=== PATIENT | male | born 2000 | race Caucasian/White ===

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

== ENCOUNTER 2021-12-06 12:20 | Emergency (ER) | payer MEDICARE, MEDICAID, SELFPAY ==
[2021-12-06 12:25] VITALS: BP 119/54; PULSE 126; RESP 16; TEMP 37.9; O2SAT 94; BMI 33.3
--- NOTE | 2021-12-06 12:46 | ED_ITS ---
HPI - COVID General: Chief Complaint: COVID symptoms Stated Complaint: Sore throat, Covid Exposure Time Seen by Provider: 12/06/21 12:40 Triage information: No fever, cough or shortness of breath . Exposure to COVID + person last 14 days History of Present Illness: 21-year-old male presents due to cough fever and congestion. Does have a history of asthma but denies any chest pain or shortness of breath. States father tested positive for COVID recently and he would like a test. COVID Results: Nasal/Oral Coronavirus 2019 PCR Not detected 08/14/20 12:39 SARS-CoV-2 (PCR) Pending 12/06/21 13:07 Coronavirus Type 229E (PCR) Pending 12/06/21 13:07 Review of Systems Narrative: - CONSTITUTIONAL: Denies weight loss, fever and chills. - HEENT: As above - RESPIRATORY: As above - CV: Denies palpitations and CP. - GI: Denies abdominal pain, nausea, vomiting and diarrhea. - : Denies dysuria and urinary frequency. - MSK: Denies myalgia and joint pain. - SKIN: Denies rash and pruritus. - NEUROLOGICAL: Denies headache, weakness, numbness and syncope. - PSYCHIATRIC: Denies suicidal ideation PFS ED PFSH: Medical History ADHD (attention deficit hyperactivity disorder) Autism History of attention deficit hyperactivity disorder (ADHD) History of autism Family History (Updated 09/25/20 @ 10:28 by Kirsten Leo LPN) Family/Other CAD (coronary artery disease) Grandmother CAD (coronary artery disease) Hypertension Stroke Father Hyperlipidemia Mother Lupus Denies family history of Rheumatoid arthritis Diabetes Cancer Social History (Updated 01/15/21 @ 10:02 by Kirsten Leo LPN) Smoking and tobacco status: never smoked Second hand smoke exposure: No Alcohol intake: never History of recent travel: No Physical Exam Narrative: EXAM NARRATIVE: - GENERAL: Alert and oriented x 3. No acute distress. Well-nourished. - EYES: EOMI. Anicteric. - HENT: Atraumatic, no C-spine tenderness. Moist mucous membranes. No scleral icterus. No cervical lymphadenopathy. - LUNGS: Clear to auscultation bilaterally. No accessory muscle use. Equal lung sounds bilaterally. No respiratory distress. - CARDIOVASCULAR: Tachycardic, regular rhythm. No murmur. No JVD. - ABDOMEN: Soft, non-tender and non-distended. Negative CVA tenderness bilaterally, no rebound or guarding, negative Haddad sign. No palpable masses. - EXTREMITIES: No edema. Non-tender. - SKIN: No rashes or lesions. Warm. - NEUROLOGIC: No meningismus or focal neurological deficits. CN II-XII grossly intact. - PSYCHIATRIC: Cooperative. Appropriate mood and affect. Course Vital Signs: Vital signs: Vital Signs Temperature 98.8 F 12/06/21 15:46 Pulse Rate 102 H 12/06/21 15:46 Respiratory Rate 18 12/06/21 15:46 Blood Pressure 104/50 12/06/21 15:46 Pulse Oximetry 95 12/06/21 15:46 Oxygen Delivery Me thod 12/06/21 13:53 MDM - COVID Medical Decision Making 21-year-old presents after URI symptoms. Saturating well on room air. He is febrile and tachycardic but improved after Tylenol. Denies chest pain or shortness of breath. Strep and influenza swabs are negative. States he does not want to wait for the results of the COVID swab and will call back to obtain results. At this time I believe patient would be safe for discharge and outpatient follow-up. Return precautions provided. Plan was reviewed with the patient who expressed understanding. Questions answered. Patient will follow up with PCP. Patient discharged in stable condition. Lab Data Laboratory Results Influenza Type A Ag Negative (Negative) 12/06/21 13:07 Influenza Type B Ag Negative (Negative) 12/06/21 13:07 Group A Strep Rapid Negative (Negative) 12/06/21 13:07 Nasal/Oral Coronavirus 2019 PCR Not detected 08/14/20 12:39 SARS-CoV-2 (PCR) Pending 12/06/21 13:07 Coronavirus Type 229E (PCR) Pending 12/06/21 13:07 Discharge Plan Discharge Patient Disposition: Home Clinical Impression: Upper respiratory infection Condition: Stable Prescriptions: New benzonatate 200 mg capsule 200 mg PO TID PRN (Reason: cough) 3 Days Qty: 9 0RF No Action Flovent Diskus 100 mcg/actuation blister with device 2 inh INHALATION ONCE fluticasone propionate [Children's Flonase Allergy Rlf] 50 mcg/actuation spray,suspension 1 spray INTRANASAL ONCE albuterol sulfate 90 mcg/actuation aerosol powdr breath activated 2 inh INHALATION Q4H PRN (Reason: asthma) montelukast [Singulair] 10 mg tablet 10 mg PO DAILY Zyrtec 10 mg capsule 10 mg PO DAILY sertraline 100 mg tablet 100 mg PO DAILY hydroxyzine HCl 25 mg tablet 25 mg PO BID PRN (Reason: Anxiety) levocetirizine [Allergy Relief (levocetirizin)] 5 mg tablet 5 mg PO DAILY Complete Multivitamin Tablet 1 tab PO DAILY Discharge Orders: Discharge ED (Routine); Ordered 12/06/21 Ordered By: Guicho Hendricks Referrals: Shanika Dixon FNP [Primary Care Provider] - 1-3 days Patient Instructions: Upper Respiratory Infection (ED), Opioid Safety Coding Level of Care Code ED [employer] Architect for Lucille Petty
--- NOTE | 2021-12-06 12:59 | PC.NURSE ---
pts mother reports pt lives with parents. father tested positive for covid. Pt reports sore throat, sinuses, fever, and swollen under his chin. Denies shortness of breath, pain, or cough. lung sounds clear bilat. no abnormalities visualized in throat. speech clear, speaking in complete sentences without difficulty
[2021-12-06] MEDS: acetaminophen 325 mg Tablet 650 MG PO (13:04)
[2021-12-06 14:50] LABS: Influenza A by IFA Negative (Negative); Influenza B by IFA Negative (Negative)
[2021-12-06 14:51] LABS: Rapid Strep A Test Negative (Negative)
[2021-12-06 15:46] VITALS: BP 104/50; PULSE 102; RESP 18; TEMP 37.1; O2SAT 95
[2021-12-06 16:00] LABS: Adenovirus Not Detected (NOT DETECT); Chlamydia Pneumoniae Not Detected (NOT DETECT); Coronavirus 229E,HKU1,NL63,OC4 Not Detected (NOT DETECT); Human Metapneumovirus Not Detected (NOT DETECT); Human Rhinovirus/Enterovirus Not Detected (NOT DETECT); Influenza A Not Detected (NOT DETECT); Influenza A H1 Not Detected (NOT DETECT); Influenza A H1-2009 Not Detected (NOT DETECT); Influenza A H3 Not Detected (NOT DETECT); Influenza B Not Detected (NOT DETECT); Mycoplasma Pneumoniae Not Detected (NOT DETECT); Parainfluenza Virus Type 1 Not Detected (NOT DETECT); Parainfluenza Virus Type 2 Not Detected (NOT DETECT); Parainfluenza Virus Type 3 Not Detected (NOT DETECT); Parainfluenza Virus Type 4 Not Detected (NOT DETECT); Respiratory Syncytial Virus A Not Detected (NOT DETECT); Respiratory Syncytial Virus B Not Detected (NOT DETECT); SARS-COV-2 Detected (NOT DETECT)
--- NOTE | 2021-12-06 16:28 | PC.NURSE ---
called lab to check status of covid swab results, per lab, results excepted in another 1.5 hours.
--- NOTE | 2021-12-06 18:31 | PC.NURSE ---
notified of positive covid result
== END 2021-12-06 17:13 | disposition home or self-care (01) ==
PROVIDERS: Emergency Provider Emergency Medicine; PCP Nurse Practitioner Family
DX: U07.1 COVID-19 (principal); F84.0 Autistic disorder
CPT/HCPCS: 87081; 87635; 87804; 87880; 99283

== ENCOUNTER → 2024-09-27 09:46 | Outpatient (BNVA) | payer OTHER, MEDICAID, SELFPAY | PROVIDERS: PCP Nurse Practitioner Family; Visit Provider Physician Assistant | DX: M25.562 Pain in left knee (principal); M23.307 Other meniscus derangements, unspecified meniscus, left knee | CPT/HCPCS: 73560; 73565; 99203 ==

== ENCOUNTER → 2024-11-21 11:15 | Outpatient (BNVA) | payer OTHER, MEDICAID, SELFPAY | PROVIDERS: PCP Nurse Practitioner Family; Visit Provider Student in an Organized Health Care Education/Training Program | DX: M25.562 Pain in left knee (principal); M23.304 Other meniscus derangements, unspecified medial meniscus, left knee | CPT/HCPCS: 99213 ==

== ENCOUNTER 2024-11-30 06:55 | Outpatient (CLI) | payer OTHER, MEDICAID, SELFPAY ==
--- NOTE | 2024-11-30 07:15 | MR_ITS ---
WS: [id number] MRI LEFT KNEE NONCONTRAST TECHNIQUE: Axial PD, coronal PD fat sat, coronal PD, sagittal PD, and sagittal PD fat-sat images obtained. CLINICAL INFORMATION: left knee pain COMPARISON: None. FINDINGS: Distal quadriceps and patella tendons are intact. Hypertrophic patella with patella soy. ACL appears intact with increased intrasubstance T1 and T2 signal abnormality suspicious for mucoid degeneration. Correlation for prior ACL tear. Normal PCL. Medial and lateral meniscus are normal in appearance. No acute appearing meniscal tears. 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 Small amount of prepatellar soft tissue edema. Medial and lateral patellar retinaculum appear intact. Lobulated septated popliteal cyst measuring 6.5 cm craniocaudal by 1.0 cm AP. Medial and lateral collateral ligaments appear intact. MR/MR knee LT wo con* [id number] IMPRESSION: 1. Somewhat diminutive ACL with mucoid degeneration. Recommend correlation for prior ACL injury. ACL appears intact. 2. Normal PCL. 3. No acute appearing meniscal tears. 4. Lobulated ganglion cyst with a portion extending superiorly with multiple t iny lobulated cysts and septations. This measures approximately 6.5 cm cranioca udal by 1.0 cm AP. 5. 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 Recommend correlation for patellar instability 6. Medial and lateral collateral ligaments appear intact. 7. No other acute findings. Outbridge grading: grade III: partial-thickness cartilage loss with focal ulcer ation
== END 2024-11-30 06:56 | disposition home or self-care (01) ==
LOC: RAD 06:56
PROVIDERS: PCP Nurse Practitioner Family; Visit Provider Student in an Organized Health Care Education/Training Program
DX: M67.462 Ganglion, left knee (principal); M22.42 Chondromalacia patellae, left knee
CPT/HCPCS: 73721

== ENCOUNTER → 2025-01-02 12:58 | Outpatient (BNVA) | payer OTHER, MEDICAID, SELFPAY | PROVIDERS: PCP Nurse Practitioner Family; Visit Provider Student in an Organized Health Care Education/Training Program | DX: M94.262 Chondromalacia, left knee (principal) | CPT/HCPCS: 20610; 99214; J3301; J9999 ==

== ENCOUNTER → 2025-04-09 15:11 | Outpatient (BNVA) | payer MEDICARE, MEDICAID, SELFPAY | PROVIDERS: PCP Nurse Practitioner Family; Visit Provider Physician Assistant | DX: M94.262 Chondromalacia, left knee (principal); Z51.89 Encounter for other specified aftercare | CPT/HCPCS: 99213 ==